=== PATIENT | female | born 1990 | race American Indian/Alaskan Native ===

== ENCOUNTER 2017-05-01 14:51 | Emergency (ER) | payer OTHER ==
[2017-05-01 15:16] VITALS: RESP 18; TEMP 98.7; BMI 35.4
--- NOTE | 2017-05-01 15:37 | ED PDOC ---
Arrival/HPI - General Chief Complaint: Chest Pain Time Seen by Provider: 05/01/17 15:00 Historian: Patient EM Caveat: Acuity of Condition - Critical Care Critical Care Minutes: 30 minutes - History of Present Illness Narrative History of Present Illness (Text): 05/01/17 15:30 Pt is a 26 yo F presents with left side chest and arm pain x 2 days that was previously assessed at [facility] 4 months ago which was diagnosed as costochondritis. Pt reports that in addition to the chest pain, she developed left anterior forearm pain, specifically a prominent vein that refers to the medial aspect of the left wrist at times. Describes this as throbbing especially when laying on the left side. Denies taking analgesics for pain, oral contraceptive pills, sick contacts, recent travel, shortness of breath, nausea, vomiting and diarrhea, back or neck pain or any other symptoms. 05/01/17 15:46 Time/Duration: 4-6 hours, > month Symptom Onset: Gradual Symptom Course: Unchanged Quality: Aching, Pressure Severity Level: Mild Activities at Onset: Rest Context: Sitting, Standing, Walking, Work Past Medical History - Provider Review Nursing Documentation Reviewed: Yes - Travel History Have you recently traveled outside [place] w/in the past 3 mons?: No - Past History Past History: No Previous - Reproductive Currently : No - Cardiac Hx Cardiac Disorders: No Hx Heart Murmur: Yes - Pulmonary Hx Respiratory Disorders: No - Neurological Hx Neurological Disorder: No - HEENT Hx HEENT Disorder: No - Renal Hx Renal Disorder: No - Endocrine/Metabolic Hx Endocrine Disorders: No - Hematological/Oncological Hx Blood Disorders: No - Integumentary Hx Dermatological Disorder: No - Musculoskeletal/Rheumatological Hx Musculoskeletal Disorders: Yes (costochondritis) Family/Social History - Physician Review Nursing Documentation Reviewed: Yes Family/Social History: Unknown Family HX Smoking Status: Never Smoked Hx Alcohol Use: No Frequency of alcohol use: Socially Hx Substance Use: No Allergies/Home Meds Allergies/Adverse Reactions: Allergies No Known Allergies Allergy (Unverified 10/11/16 12:53) Review of Systems - Physician Review All systems were reviewed & negative as marked: Yes - Review of Systems Constitutional: Normal Eyes: Normal ENT: Normal Respiratory: Normal Cardiovascular: Normal Gastrointestinal: Normal Genitourinary Female: Normal Musculoskeletal: Normal Skin: Normal Neurological: Normal Endocrine: Normal Hemo/Lymphatic: Normal, Other (left anterior forearm pain and raised vein) Psychiatric: Normal Physical Exam Vital Signs Temp Pulse Resp BP Pulse Ox 05/01/17 18:25 80 18 124/75 98 05/01/17 15:15 98.7 F 82 18 135/79 99 Temperature: Afebrile Blood Pressure: Normal Pulse: Regular Respiratory Rate: Normal Appearance: Positive for: Well-Appearing, Non-Toxic, Comfortable Pain Distress: None Mental Status: Positive for: Alert and Oriented X 3 - Systems Exam Head: Present: Atraumatic, Normocephalic Pupils: Present: PERRL Extroacular Muscles: Present: EOMI Conjunctiva: Present: Normal Mouth: Present: Moist Mucous Membranes Neck: Present: Normal Range of Motion. No: Meningeal Signs, MIDLINE TENDERNESS , Paraspinal Tenderness, JVD, Lymphadenopathy, Bruit, Trachea Midline, Other Respiratory/Chest: Present: Clear to Auscultation, Good Air Exchange. No: Respiratory Distress, Accessory Muscle Use, Wheezes, Decreased Breath Sounds, Rales, Retracting, Rhonchi, Tachypneic, Tender to Palpation, Other Cardiovascular: Present: Regular Rate and Rhythm, Normal S1, S2 Abdomen: Present: Normal Bowel Sounds Back: Present: Normal Inspection Upper Extremity: Present: Normal Inspection, Normal ROM, NORMAL PULSES, Tenderness (left anterior forearm with palpable, raised vein), Swelling, Neurovascularly Intact, Capillary Refill < 2s. No: Cyanosis, Edema Lower Extremity: Present: Normal Inspection, NORMAL PULSES, Normal ROM. No: Edema Neurological: Present: GCS=15, CN II-XII Intact, Speech Normal, Motor Func Grossly Intact (left hand inside sales supervisor strength 4/5 vs 5/5 on the right) Skin: Present: Warm, Dry, Normal Color. No: Rashes Psychiatric: Present: Alert, Oriented x 3, Normal Insight, Normal Concentration Medical Decision Making ED Course and Treatment: 05/01/17 15:41 Impression Pt is a 26 yo F presents with left side chest and arm pain x 2 days that was previously assessed at [facility] months ago which was diagnosed as costochondritis. On exam, pt can specifically point to the left 4-5th intercostal space that gives her pain, especially on movement. Cardiac exam benign; lungs CTAB, point tenderness and palpable, dark blue cord over the left anterior aspect of the forearm; Plan CXR, ecg, cbc, cmp, ua, cardiac iso, troponin Rapid Flu Dupplex to r/o thrombosis Progress Note Pt resting well in bed, stable, no complaints of chest pain or arm pain Dupplex negative along with labs WNL Dispo home and advised to follow up with PMD if any recurring chest pain occurs or left arm pain Motrin for inflammation and pain; - Lab Interpretations Lab Results: 05/01/17 16:20 05/01/17 16:20 Lab Results 05/01/17 16:20: Sodium 140, Potassium 4.1, Chloride 105, Carbon Dioxide 27, Anion Gap 13, BUN 7, Creatinine 0.7, Est GFR ( Amer) > 60, Est GFR (Non- Af Amer) > 60, Random Glucose 87, Calcium 9.7, Total Bilirubin 0.4, AST 29, ALT 17, Alkaline Phosphatase 79, Lactate Dehydrogenase 407, Total Creatine Kinase 66 , Troponin I < 0.01, Total Protein 7.5, Albumin 4.0, Globulin 3.5, Albumin/ Globulin Ratio 1.1 05/01/17 16:20: Urine Color Yellow, Urine Appearance Clear, Urine pH 7.0, Ur Specific Cornucopia 1.015, Urine Protein Negative, Urine Glucose (UA) Negative, Urine Ketones Negative, Urine Blood Negative, Urine Nitrate Negative, Urine Bilirubin Negative, Urine Urobilinogen 1.0 H, Ur Leukocyte Esterase Negative 05/01/17 16:20: WBC 5.5, RBC 4.17, Hgb 12.3, Hct 37.0, MCV 88.7, MCH 29.5, MCHC 33.2, RDW 12.8, Plt Count 336, MPV 9.9 I have reviewed the lab results: Yes (WNL) - RAD Interpretation Narrative RAD Interpretations (Text): 05/01/17 17:45 HISTORY: chest pain COMPARISON: None TECHNIQUE: Chest PA and lateral FINDINGS: LUNGS: No active pulmonary disease. PLEURA: No significant pleural effusion identified. No pneumothorax apparent. CARDIOVASCULAR: Normal. OSSEOUS STRUCTURES: No significant abnormalities. VISUALIZED UPPER ABDOMEN: Normal. OTHER FINDINGS: None. IMPRESSION: No active disease. Radiology Orders: 05/01/17 16:07 CXR [CHEST TWO VIEWS (PA/LAT)] [RAD] Stat 05/01/17 16:09 DUPLEX UPPER EXTRM VEIN LEFT [US] Urgent - EKG Interpretation Interpreted by ED Physician: Yes (NSR with arrhythmia (baseline)) Disposition/Present on Arrival - Present on Arrival Any Indicators Present on Arrival: No History of DVT/PE: No History of Uncontrolled Diabetes: No Urinary Catheter: No History of Decub. Ulcer: No - Disposition Have Diagnosis and Disposition been Completed?: Yes Diagnosis: Costochondral chest pain, Muscle strain of forearm Disposition: HOME/ ROUTINE Disposition Time: 17:51 Patient Plan: Discharge Condition: GOOD Discharge Instructions (ExitCare): Costochondritis (ED) Additional Instructions: Scotty Alexander, After reviewing all the labs and imaging studies, we have deemed you stable and able to go home. Your chest pain and arm pain is likely due to muscle tightness that is best treated with ibuprofen, muscle relaxants and physical therapy. Please follow up with your Primary in the next week. Should you develop severe chest pain and breathing difficulties, fever, return to the ER immediately All the best in your recovery.. Prescriptions: Cyclobenzaprine [Flexeril] 10 mg PO BID 5 Days #10 tab Ibuprofen [Motrin Tab] 400 mg PO Q6 #20 tab Forms: [employer] (Bulgarian)
[2017-05-01 16:59] LABS: HEMOGLOBIN 12.3 g/dL (12.0-16.0); MEAN CELL VOLUME 88.7 fl (80.0-105.0); MEAN CORPUSCULAR HEMOGLOBIN 29.5 pg (25.0-35.0); MEAN CORPUSCULAR HGB CONC 33.2 g/dl (31.0-37.0); MEAN PLATELET VOLUME 9.9 fl (7.0-11.0); RBC 4.17 10^6/uL (3.5-6.1); RED CELL DISTRIBUTION WIDTH 12.8 % (11.5-14.5); WHITE BLOOD COUNT 5.5 10^3/ul (4.5-11.0)
[2017-05-01 17:01] LABS: URINE BILIRUBIN NEGATIVE (NEGATIVE); URINE BLOOD NEGATIVE (NEGATIVE); URINE GLUCOSE (UA) NEGATIVE (NEGATIVE); URINE LEUKOCYTE ESTERASE NEGATIVE Leu/uL (NEGATIVE); URINE NITRATE NEGATIVE (NEGATIVE); URINE PROTEIN NEGATIVE mg/dL (<30 mg/dL)
[2017-05-01 17:02] LABS: URINE APPEARANCE CLEAR (CLEAR); URINE COLOR YELLOW (YELLOW)
[2017-05-01 17:12] LABS: ALB/GLOB RATIO 1.1 (1.1-1.8); ALT/SGPT 17 U/L (7-56); AST/SGOT 29 U/L (14-36); BLOOD UREA NITROGEN 7 mg/dL (7-21); CALCIUM 9.7 mg/dL (8.4-10.5); GFR AFRICAN-AMERICAN > 60; GFR NON-AFRICAN AMERICAN > 60
[2017-05-01 17:23] LABS: TROPONIN I < 0.01 ng/mL
--- NOTE | 2017-05-01 17:43 | RAD ---
HISTORY: chest pain COMPARISON: None TECHNIQUE: Chest PA and lateral FINDINGS: LUNGS: No active pulmonary disease. PLEURA: No significant pleural effusion identified. No pneumothorax apparent. CARDIOVASCULAR: Normal. OSSEOUS STRUCTURES: No significant abnormalities. VISUALIZED UPPER ABDOMEN: Normal. OTHER FINDINGS: None. IMPRESSION: No active disease.
[2017-05-01 19:05] VITALS: BP 124/75; PULSE 80; O2SAT 98
--- NOTE | 2017-05-02 10:41 | US ---
PROCEDURE: Left upper extremity venous ultrasound HISTORY: Arm pain and swelling. Evaluate for deep venous thrombosis. PHYSICIAN(S): Sergio Grissom MD. FINDINGS: The visualized leftinternal jugular vein is sonographically normal and compressible. No evidence of obstruction or thrombus is seen. The visualized segments of the left subclavian vein are patent with normal waveforms. No sonographic evidence of obstruction or thrombosis is seen. The visualized deep venous system of the proximal leftupper extremity is sonographically normal and compressible. IMPRESSION: 1. No sonographic evidence for deep venous thrombosis in the visualized segments of the left upper extremity.
--- NOTE | 2017-05-02 21:45 | CARD ---
APPROVED REPORT EKG Measurement Heart [id number] <Conclusion> Normal sinus rhythm with sinus arrhythmia Normal ECG
== END 2017-05-01 18:25 | disposition home or self-care (01) ==
LOC: MERGE 14:51 → ED 14:51
DX: R07.1 Chest pain on breathing (principal); S56.912A Strain of unspecified muscles, fascia and tendons at forearm level, left arm, initial encounter; X58.XXXA Exposure to other specified factors, initial encounter; Y92.9 Unspecified place or not applicable